=== PATIENT | male | born 1990 | race Caucasian/White ===

== ENCOUNTER 2016-10-15 02:08 | Emergency (ER) | payer BC ==
[~2016-10-15] VITALS: Ht 185.4 cm; Wt 155.0 kg
[~2016-10-15 02:08] MED LIST: AMOXICILLIN500 MG PO; BACTRIM DS1 TAB PO; CEPHALEXIN500 MG PO; CIPROFLOXACN500 MG PO; DONNATA2 PO; KEFLEX500 MG PO; LISINOPRIL10 MG PO; LORTAB 10-325 M1 TAB PO; LORTAB 5-325 MG1 TAB PO; LORTAB 5/3255 MG PO; LORTAB5 PO; MEDDOSEPAK PO; NAPROSYN500 MG PO; NORCO1 TA1 PO; PHENERGAN25 MG/TAB PO; PRILOSEC20 MG PO; PROMETHAZINE25 M1 RE; TRAMADOL HCL50 MG PO; ULTRAM50 M1 PO; ULTRAM50 MG PO; ZANTAC SYRUP15 MG/ML PO; ZOFRAN ODT4 MG PO
[2016-10-15 03:17] LABS: HEMATOCRIT 43.6 % (39.0-50.0); HEMOGLOBIN 15.1 g/dl (14.0-18.0); IMMATURE GRANULOCYTES 0.4 % (0.0-1.0); MEAN CELL VOLUME 86.7 fL CALC (80.0-100.0); MEAN CORPUSCULAR HGB CONC 34.6 g/L CALC (32.0-36.0); NEUT# 9.02 thou/uL (1.82-7.42); RED BLOOD COUNT 5.03 mill/uL (4.70-6.10); RED CELL DISTRI WIDTH 12.3 % (11.5-15.5)
[2016-10-15 03:32] LABS: ALBUMIN 3.9 g/dL (3.2-5.0); ALKALINE PHOSPHATASE 88 u/l (38-126); ANION GAP 14 (6-22 (CALC)); BILIRUBIN, TOTAL 0.4 mg/dL (0.0-1.4); BUN 12 mg/dL (9-20); BUN/CREATININE RATIO 12 (12-20 (CALC)); CARBON DIOXIDE 28 mmol/l (22-30); CHLORIDE 103 mmol/l (95-108); GFR > 60 ML/MIN (>=60 (CALC)); GFR FOR AFR.AMER. > 60 ML/MIN (>=60 (CALC)); GLUCOSE 85 mg/dL (75-110); POTASSIUM 3.4 mmol/l (3.5-5.1); SGOT/AST 26 u/l (17-59); SGPT/ALT 30 u/l (21-72); SODIUM 142 mmol/l (137-146); TOTAL PROTEIN 7.3 g/dL (6.3-8.2)
[2016-10-15 03:35] LABS: INFLUENZA A NONE DETECTED (NONE DETECT); INFLUENZA B NONE DETECTED (NONE DETECT)
[2016-10-15 03:43] LABS: MYOGLOBIN 43 ng/mL (0 - 121)
[2016-10-15] MEDS ORDERED: AUGMENTIN875TAB PO (03:44)
[2016-10-15 04:23] VITALS: BP 136/92
== END 2016-10-15 04:23 | disposition home or self-care (01) | DRG 153 ==
LOC: ED 02:08
PROVIDERS: Emergency Medicine
DX: J02.0 Streptococcal pharyngitis (principal); F17.210 Nicotine dependence, cigarettes, uncomplicated; K21.9 Gastro-esophageal reflux disease without esophagitis; Z87.442 Personal history of urinary calculi

== ENCOUNTER 2016-10-23 02:06 | Emergency (ER) | payer BC ==
[~2016-10-23] VITALS: Ht 185.4 cm; Wt 155.4 kg
[~2016-10-23 02:06] MED LIST changes: +AUGMENTIN875TAB PO
[2016-10-23] MEDS ORDERED: PERCOCET 5/325M1 TAB PO (06:41)
[2016-10-23] MEDS ORDERED: ORPHENADRINE100 MG PO (06:41)
[2016-10-23 06:43] VITALS: BP 113/61
== END 2016-10-23 06:50 | disposition home or self-care (01) | DRG 556 ==
LOC: ED 02:06
DX: M79.605 Pain in left leg (principal); R50.9 Fever, unspecified; R22.42 Localized swelling, mass and lump, left lower limb

== ENCOUNTER 2017-07-23 14:33 | Emergency (ER) | payer SELFPAY ==
[~2017-07-23] VITALS: Ht 185.4 cm; Wt 151.6 kg
[~2017-07-23 14:33] MED LIST changes: +ORPHENADRINE100 MG PO; +PERCOCET 5/325M1 TAB PO
[2017-07-23 16:18] LABS: URINE BILIRUBIN - DIPSTICK NEGATIVE (NEGATIVE); URINE BLOOD DIPSTICK MODERATE (NEGATIVE); URINE COLOR YELLOW; URINE GLUCOSE - DIPSTICK NEGATIVE (NEGATIVE); URINE KETONE NEGATIVE (NEGATIVE); URINE LEUK ESTERASE NEGATIVE (NEGATIVE); URINE NITRITE - DIPSTICK NEGATIVE (Negative); URINE PROTEIN - DIPSTICK NEGATIVE (NEG-TRACE); URINE SPECIFIC GRAVITY 1.025; URINE UROBILINOGEN - DIPSTICK 0.2 E.U./dL (0.2)
[2017-07-23 16:22] LABS: URINE CLARITY CLEAR
[2017-07-23 16:31] LABS: URINE WBC 0-2 WBC/hpf (0-5)
[2017-07-23] MEDS ORDERED: ULTRAM50 M1 PO (18:05)
[2017-07-23 18:14] VITALS: BP 123/81
[2017-07-24] MEDS ORDERED: ZOFRAN4 M1 PO (03:49)
== END 2017-07-23 18:20 | disposition home or self-care (01) | DRG 694 ==
LOC: ED 14:33
PROVIDERS: Emergency Medicine
DX: N20.0 Calculus of kidney (principal); M25.572 Pain in left ankle and joints of left foot; M76.62 Achilles tendinitis, left leg; Z87.442 Personal history of urinary calculi

== ENCOUNTER 2017-07-24 02:28 | Emergency (ER) | payer SELFPAY ==
[~2017-07-24] VITALS: Ht 185.4 cm; Wt 152.0 kg
[2017-07-24 03:30] LABS: HEMATOCRIT 43.9 % (39.0-50.0); HEMOGLOBIN 14.9 g/dl (14.0-18.0); IMMATURE GRANULOCYTES 0.4 % (0.0-1.0); MEAN CELL VOLUME 88.3 fL CALC (80.0-100.0); MEAN CORPUSCULAR HGB CONC 33.9 g/L CALC (32.0-36.0); NEUT# 6.66 thou/uL (1.82-7.42); RED BLOOD COUNT 4.97 mill/uL (4.70-6.10); RED CELL DISTRI WIDTH 12.8 % (11.5-15.5); URINE BILIRUBIN - DIPSTICK NEGATIVE (NEGATIVE); URINE BLOOD DIPSTICK SMALL (NEGATIVE); URINE COLOR YELLOW; URINE GLUCOSE - DIPSTICK NEGATIVE (NEGATIVE); URINE KETONE NEGATIVE (NEGATIVE); URINE LEUK ESTERASE NEGATIVE (NEGATIVE); URINE NITRITE - DIPSTICK NEGATIVE (Negative); URINE PH 7.5 (4.5-8.0); URINE PROTEIN - DIPSTICK NEGATIVE (NEG-TRACE); URINE SPECIFIC GRAVITY 1.015
[2017-07-24 03:31] LABS: URINE CLARITY TURBID
[2017-07-24 03:34] LABS: URINE AMORPH SEDIMENT MANY hpf (NONE-FER); URINE BACTERIA FEW hpf; URINE SQUAMOUS EPITHELIAL CELL MODERATE EPI/hpf (0-FEW)
[2017-07-24 03:39] LABS: ALBUMIN 3.8 g/dL (3.2-5.0); ALKALINE PHOSPHATASE 77 u/l (38-126); ANION GAP 15 (6-22 (CALC)); BILIRUBIN, TOTAL 0.3 mg/dL (0.0-1.4); BUN 12 mg/dL (9-20); BUN/CREATININE RATIO 11 (12-20 (CALC)); CALCIUM 9.5 mg/dL (8.4-10.2); CARBON DIOXIDE 26 mmol/l (22-30); CHLORIDE 109 mmol/l (95-108); CREATININE 1.1 mg/dL (0.7-1.3); GFR > 60 ML/MIN (>=60 (CALC)); GFR FOR AFR.AMER. > 60 ML/MIN (>=60 (CALC)); GLUCOSE 96 mg/dL (75-110); LIPASE 98 u/l (23-300); POTASSIUM 4.3 mmol/l (3.5-5.1); SGOT/AST 24 u/l (17-59); SGPT/ALT 29 u/l (21-72); SODIUM 146 mmol/l (137-146)
[2017-07-24] MEDS ORDERED: ZOFRAN4 M1 PO (03:49)
[2017-07-24 07:15] VITALS: BP 127/67
== END 2017-07-24 07:15 | disposition home or self-care (01) | DRG 392 ==
LOC: ED 02:28
PROVIDERS: Family Medicine
DX: R10.84 Generalized abdominal pain (principal); R04.2 Hemoptysis; F17.210 Nicotine dependence, cigarettes, uncomplicated